=== PATIENT | male | born 1970 | race Caucasian/White ===

== ENCOUNTER → 2017-02-22 | Outpatient (CLI) | payer OTHER | END | disposition home or self-care (01) | LOC: CFH 07:54 | PROVIDERS: ATTEND Nurse Practitioner Primary Care | DX: M25.562 Pain in left knee (principal); G89.29 Other chronic pain; E78.2 Mixed hyperlipidemia; Z23 Encounter for immunization; E55.9 Vitamin D deficiency, unspecified; R53.83 Other fatigue; R71.8 Other abnormality of red blood cells; E88.81 Metabolic syndrome and other insulin resistance; R00.2 Palpitations; R01.1 Cardiac murmur, unspecified; R06.83 Snoring; K21.9 Gastro-esophageal reflux disease without esophagitis; F90.0 Attention-deficit hyperactivity disorder, predominantly inattentive type; E03.9 Hypothyroidism, unspecified ==

== ENCOUNTER → 2017-05-22 | Outpatient (CLI) | payer OTHER | END | disposition home or self-care (01) | LOC: CFH 10:46 | PROVIDERS: ATTEND Nurse Practitioner Primary Care | DX: M23.222 Derangement of posterior horn of medial meniscus due to old tear or injury, left knee (principal); M17.12 Unilateral primary osteoarthritis, left knee; M25.462 Effusion, left knee; E78.2 Mixed hyperlipidemia; E55.9 Vitamin D deficiency, unspecified; R53.83 Other fatigue; R71.8 Other abnormality of red blood cells; E88.81 Metabolic syndrome and other insulin resistance; R00.2 Palpitations; R01.1 Cardiac murmur, unspecified; R06.83 Snoring; K21.9 Gastro-esophageal reflux disease without esophagitis; F90.0 Attention-deficit hyperactivity disorder, predominantly inattentive type; E03.9 Hypothyroidism, unspecified ==